=== PATIENT | female | born 1945 | race Caucasian/White ===

== ENCOUNTER 2019-06-30 12:39 | Outpatient (CLI) | payer MEDICARE ==
--- NOTE | 2019-07-08 12:50 | MMO ---
Bilateral MAMMO Bilat Screen [facility]. CLINICAL HISTORY: Patient is 74 years old and is seen for screening. The patient has the following family history of breast cancer: sister, at age 58, malignant (generic). The patient has no personal history of cancer. VIEWS: The views performed were: bilateral craniocaudal with tomosynthesis and bilateral mediolateral oblique with tomosynthesis. FILMS COMPARED: The present examination has been compared to prior imaging studies performed at [facility] on 04/29/2013, 06/12/2015 and 04/17/2018. MAMMOGRAM FINDINGS: There are scattered fibroglandular densities. There are no suspicious masses, suspicious calcifications, or new areas of architectural distortion. IMPRESSION: THERE IS NO MAMMOGRAPHIC EVIDENCE OF MALIGNANCY. A ROUTINE FOLLOW-UP MAMMOGRAM IN 1 YEAR IS RECOMMENDED. THE RESULTS OF THIS EXAM WERE SENT TO THE PATIENT. ACR BI-RADS Category 1 - Negative MAMMOGRAPHY NOTE: 1. A negative mammogram report should not delay a biopsy if a dominant of clinically suspicious mass is present. 2. Approximately 10% to 15% of breast cancers are not detected by mammography. 3. Adenosis and dense breasts may obscure an underlying neoplasm. Reported by: BEA LAWLER MD Electonically Signed: [id number]
== END 2019-06-30 12:40 | disposition home or self-care (01) ==
LOC: BICMAMMO 12:39
PROVIDERS: ATTEND Family Medicine
DX: Z12.31 Encounter for screening mammogram for malignant neoplasm of breast (principal)
CPT/HCPCS: 77063; 77067

== ENCOUNTER 2020-01-11 12:01 | Outpatient (CLI) | payer MEDICARE ==
--- NOTE | 2020-01-11 12:24 | RAD ---
PA AND LATERAL VIEWS CHEST: Date: 01/11/2020 HISTORY: Cough. Abnormal breath sounds. Wheezing. FINDINGS: The heart size is normal. The aorta is tortuous. The lungs are well expanded without lobar consolidat ion, pneumothoraces, or pleural effusions. There are degenerative changes in the spine. IMPRESSION: No radiographic evidence of acute cardiopulmonary process. POS: [facility]
== END 2020-01-11 12:02 | disposition home or self-care (01) ==
LOC: BICRAD 12:01
PROVIDERS: ATTEND Nurse Practitioner Family
DX: R05 Cough (principal); R06.89 Other abnormalities of breathing
CPT/HCPCS: 71046

== ENCOUNTER 2020-07-05 14:33 | Outpatient (CLI) | payer MEDICARE ==
--- NOTE | 2020-07-05 15:15 | MMO ---
Bilateral MAMMO Bilat Screen [facility]. CLINICAL HISTORY: Patient is 75 years old and is seen for screening. The patient has the following family history of breast cancer: sister, at age 58, malignant (generic). The patient has no personal history of cancer. VIEWS: The views performed were: bilateral craniocaudal with tomosynthesis and bilateral mediolateral oblique with tomosynthesis. FILMS COMPARED: The present examination has been compared to prior imaging studies performed at [facility] on 04/29/2013, 06/12/2015 and 04/17/2018, and at [facility] on 06/30/2019. This study has been interpreted with the assistance of computer-aided detection. MAMMOGRAM FINDINGS: There are scattered fibroglandular densities. There are stable benign appearing calcifications seen in both breasts. There are no suspicious masses, suspicious calcifications, or new areas of architectural distortion. IMPRESSION: THERE IS NO MAMMOGRAPHIC EVIDENCE OF MALIGNANCY. A ROUTINE FOLLOW-UP MAMMOGRAM IN 1 YEAR IS RECOMMENDED. THE RESULTS OF THIS EXAM WERE SENT TO THE PATIENT. ACR BI-RADS Category 2 - Benign finding MAMMOGRAPHY NOTE: 1. A negative mammogram report should not delay a biopsy if a dominant of clinically suspicious mass is present. 2. Approximately 10% to 15% of breast cancers are not detected by mammography. 3. Adenosis and dense breasts may obscure an underlying neoplasm. Reported by: ROSE ALEXANDRA MD Electonically Signed: [id number]
== END 2020-07-05 14:34 | disposition home or self-care (01) ==
LOC: BICMAMMO 14:33
PROVIDERS: ATTEND Family Medicine
DX: Z12.31 Encounter for screening mammogram for malignant neoplasm of breast (principal); Z80.3 Family history of malignant neoplasm of breast
CPT/HCPCS: 77063; 77067

== ENCOUNTER 2021-08-14 14:57 | Outpatient (CLI) | payer MEDICARE | END 2021-08-14 14:58 | disposition home or self-care (01) | LOC: BICMAMMO 14:57 | PROVIDERS: ATTEND Family Medicine | DX: Z12.31 Encounter for screening mammogram for malignant neoplasm of breast (principal); Z13.820 Encounter for screening for osteoporosis; N64.89 Other specified disorders of breast; R92.1 Mammographic calcification found on diagnostic imaging of breast; Z80.3 Family history of malignant neoplasm of breast | CPT/HCPCS: 77063; 77067; 77080 ==

== ENCOUNTER 2021-08-20 14:16 | Outpatient (CLI) | payer MEDICARE | END 2021-08-20 14:17 | disposition home or self-care (01) | LOC: BICMAMMO 14:16 | PROVIDERS: ATTEND Family Medicine | DX: N64.89 Other specified disorders of breast (principal) | CPT/HCPCS: 76642; 77065; G0279 ==

== ENCOUNTER 2022-03-11 10:47 | Outpatient (CLI) | payer MEDICARE | END 2022-03-11 10:48 | disposition home or self-care (01) | LOC: BICRAD 10:47 | PROVIDERS: ATTEND Family Medicine | DX: M25.551 Pain in right hip (principal); M25.552 Pain in left hip ==

== ENCOUNTER 2022-09-02 14:04 | Outpatient (CLI) | payer MEDICARE | END 2022-09-02 14:05 | disposition home or self-care (01) | LOC: BICMAMMO 14:04 | PROVIDERS: ATTEND Family Medicine | DX: Z12.31 Encounter for screening mammogram for malignant neoplasm of breast (principal); Z80.3 Family history of malignant neoplasm of breast | CPT/HCPCS: 77063; 77067 ==

== ENCOUNTER 2023-10-16 08:10 | Outpatient (CLI) | payer MEDICARE | END 2023-10-16 08:11 | disposition home or self-care (01) | LOC: BICMAMMO 08:10 | PROVIDERS: ATTEND Family Medicine | DX: Z12.31 Encounter for screening mammogram for malignant neoplasm of breast (principal) | CPT/HCPCS: 77063; 77067 ==